=== PATIENT | female | born 1995 | race African-American/Black ===

== ENCOUNTER 2024-05-26 12:51 | Outpatient (AMB) | payer OTHER, SELFPAY ==
--- NOTE | 2024-05-26 12:55 | A.OFFVIS_ITS ---
Vital Signs 05/26/24 13:06 Height 4 ft 4.1 in Weight 194 lb 3.636 oz BMI 50.3 BP 130/80 Blood Pressure Location Rt brachial Position Sitting Pulse 78 Pulse Source Pulse Oximeter Pulse Oximetry (%) 98 Oxygen Delivery Method Room Air Intake Visit Reasons: Lupus Intake Note: Patient presents for Lupus. Feeling pain on my entire body. I been feeling this pain for more than 20 years. Over the counter pain meds don't work Allergies seafood Allergy (Mild, Verified 05/26/24 13:03) Itching Medication List - Last Reconciled 05/26/24 by Chaka Brito MD albuterol sulfate 90 mcg/actuation (ProAir RespiClick) 2 inhalations inhalation Q4H PRN cetirizine (All Day Allergy (cetirizine)) 10 mg PO DAILY PRN fluticasone propionate 110 mcg/actuation 2 puffs inhalation BID norethindrone acetate 5 mg PO DAILY HPI Comments Details: This is a 29-year-old female who presents for evaluation of a positive LEYDI in the context of diffuse pain. Patient states that for the last 20 years she has had diffuse pains. She states that he pain sometimes come in flares. She gets intermittent swelling of her hands. She states that her and sometimes change color to blue in the cold. She has to put her hand between her thighs to warm them up. She states that she gets unexplained fevers but she does not take her temperature. She denies any history of DVT/PE. Patient has never been . She states that her paternal aunt has lupus She states that she was evaluated by supervisor communications and signals at the [facility] and was told that no evidence of an autoimmune rheumatic disease was found. [facility] Medical History YANA (obstructive sleep apnea) Esophageal hiatal hernia Fibromyalgia, primary Abdominal wall cellulitis Dysmenorrhea Umbilical hernia Back pain Asthma Complex ovarian cyst Morbid obesity Endometriosis determined by laparoscopy Anxiety and depression Allergic rhinitis Surgical History H/O myomectomy H/O colonoscopy Family History Paternal Aunt Lupus (systemic lupus erythematosus) Social History Household Members: Other Housing: Apartment Alcohol intake: current Comment: Rare Patient Tobacco Use Status: Never used Tobacco Current occupational status: employed Current occupation: quality engineer medical device Female Reproductive History Menstrual Total pregnancies: 0 Review of Systems Const Reports fatigue and Reports fever(s) Musc Reports myalgias, Reports arthralgias and Reports joint swelling Skin/Breast Reports rash Psych Reports anxiety Endo Reports fatigue Physical Exam Vital Signs: Last Vital Signs Pulse 78 05/26/24 13:06 BP 130/80 05/26/24 13:06 Pulse Ox 98 05/26/24 13:06 Oxygen Delivery Method Room Air 05/26/24 13:06 BMI result Body Mass Index 50.3 Const General: cooperative, healthy appearing and comfortable Nutritional Appearance: obese morbidly obese Orientation/consciousness: patient oriented x3 Limitations: no limitations HEENT Head: Yes No palpable skull fracture present and Yes normocephalic Mouth: moist mucous membranes Resp Effort & Inspection: normal respiratory effort and able to speak in complete sentences Auscultation: clear to auscultation bilaterally Cardio Rate: regular rate Rhythm: regular rhythm Skin General skin exam: no rashes or lesions noted Neuro General: patient oriented x3 Extrem Other: No active synovitis Normal nailfold capillaroscopy Multiple fibromyalgia tender points Results Reviewed Results Reviewed: Labs 09/2023 CBC unremarkable ESR 9 CMP unremarkable CRP undetectable TSH normal Free T4 normal LEYDI 1-320 homogeneous RF/CCP negative Assessment & Plan Assessment & Plan (1) LEYDI positive: Code(s): R76.8 - Other specified abnormal immunological findings in serum Category: Medical Plan: This is a 29-year-old female who presents for evaluation of a positive LEYDI in the context of diffuse pain. Symptoms rather consistent with fibromyalgia however given positive LEYDI in a relatively young female I will order comprehensive serology to screen for underlying autoimmune rheumatic disease Advised patient to take pictures of any skin rashes or swollen joints. Follow- up in about 4 weeks Plan I spent 47 minutes reviewing patient's chart, evaluating patient, ordering diagnostic workup, counseling patient and documenting in the chart Orders: Orders LEYDI Reflex Titer and Pattern Today M32.9 - Systemic lupus erythematosus, unspecified Anti DNA DS Antibody Today M32.9 - Systemic lupus erythematosus, unspecified Complement C3 Today M32.9 - Systemic lupus erythematosus, unspecified Protein Creatinine Ratio, Ur Today M32.9 - Systemic lupus erythematosus, unspecified Anti Extractable Nuclear Ag Today M32.9 - Systemic lupus erythematosus, unspecified Complement C4 Today M32.9 - Systemic lupus erythematosus, unspecified DNA Double Stranded-Crithidia Today M32.9 - Systemic lupus erythematosus, unspecified Sjogren's Antibodies Today M32.9 - Systemic lupus erythematosus, unspecified UA w Microscopic Today M32.9 - Systemic lupus erythematosus, unspecified Hepatitis A,B,C Profile Today Z11.59 - Encounter for screening for other viral diseases Thyroglobulin Antibodies Today R53.83 - Other fatigue Thyroid Peroxidase Antibodies Today R53.83 - Other fatigue Coding Level of Care Code New Pt Level 4 (68379) Diagnoses LEYDI positive R76.8
[2024-05-26 13:06] VITALS: BP 130/80; PULSE 78; O2SAT 98; BMI 50.3
== END 2024-05-26 13:40 | disposition home or self-care (01) ==
PROVIDERS: PCP Family Medicine; Visit Provider Student in an Organized Health Care Education/Training Program
DX: R76.8 Other specified abnormal immunological findings in serum (principal)
CPT/HCPCS: 99204

== ENCOUNTER 2024-05-26 12:51 | Outpatient (REF) | payer OTHER, SELFPAY ==
[2024-05-26 15:32] LABS: Appearance Urine Clear; Color Urine Dark Yellow; Glucose Urine UA Negative (Negative); Leukocyte Esterase Urine Trace (Negative); Nitrite Urine Negative (Negative); PH 5.5 (5.0-9.0); Specific Gravity - Urine >= 1.030 (1.005-1.025); UMIC TRIGGER UA YES; Urine Blood Negative (Negative); Urine Ketones Trace mg/dL (Negative); Urine Protein Trace mg/dL (Neg-Trace)
[2024-05-26 15:46] LABS: Bacteria Urine 2+ (None Seen); Hyaline Casts Urine 0-2 /LPF (0-2); RBC Urine 0-2 /HPF (0-2); WBC Urine 0-5 /HPF (0-5)
[2024-05-26 16:16] LABS: Creatinine Urine 482.67 mg/dL; Protein/Creatinine Ratio, Ur 0.05 (<0.2); Total Protein Urine Random 25 mg/dL (<12)
[2024-05-27 08:05] LABS: HBS Num1 33.59 mIU/mL (0-7.99); Hepatitis A Antibody IgM 0.17 Index (0-0.79); Hepatitis B Core Antibody Nonreactive (Nonreactive); Hepatitis B Surface Antigen Negative (Negative); ~HepC Num1 0.12 S/CO (0.00-0.79); ~Hepatitis A Antibody IgM Nonreactive (Nonreactive); ~Hepatitis B Surface Antibody REACTIVE (Nonreactive); ~Hepatitis C Antibody Nonreactive (Nonreactive)
[2024-05-27 11:24] LABS: Complement C3 154 mg/dL (83-193)
[2024-05-28 07:13] LABS: Thyroglobulin Antibodies 4 IU/mL (< or = 1); Thyroid Peroxidase Antibodies 173 IU/mL (<9)
[2024-05-31 07:14] LABS: Anti DNA DS Antibody <1 IU/mL; Antibody to SS-A Antigen <1.0 NEG AI (<1.0 NEG); Antibody to SS-B Antigen <1.0 NEG AI (<1.0 NEG); SM/Ribonucleoprotein Ab <1.0 NEG AI (<1.0 NEG); Smith Protein <1.0 NEG AI (<1.0 NEG)
[2024-06-01 09:33] LABS: Anti Nuclear Antibody Screen POSITIVE (NEGATIVE); Anti Nuclear Antibody Titer 1:40 titer
[2024-06-02 06:10] LABS: DNAds, Crithidia Antibody Negative (Negative)
== END 2024-05-26 12:52 | disposition home or self-care (01) ==
LOC: HO.LAB 12:51
PROVIDERS: PCP Student in an Organized Health Care Education/Training Program; Visit Provider Student in an Organized Health Care Education/Training Program
DX: M32.9 Systemic lupus erythematosus, unspecified (principal); Z11.59 Encounter for screening for other viral diseases; R53.83 Other fatigue; R76.8 Other specified abnormal immunological findings in serum
CPT/HCPCS: 36415; 81001; 82570; 84156; 86038; 86039; 86160; 86225; 86235; 86255; 86376; 86704; 86706; 86709; 86800; 86803; 87340